=== PATIENT | male | born 1990 | race African-American/Black ===

== ENCOUNTER 2017-02-24 00:03 | Emergency (ER) | payer MEDICAID, OTHER ==
[~2017-02-24] VITALS: Ht 180.3 cm; Wt 86.0 kg
[2017-02-24 04:25] VITALS: BP 134/94
== END 2017-02-24 02:30 | disposition left against medical advice (07) ==
LOC: ER 00:03
DX: Z53.21 Procedure and treatment not carried out due to patient leaving prior to being seen by health care provider (principal)